=== PATIENT | male | born 1990 | race Hispanic/Latino ===

== ENCOUNTER 2017-01-09 08:02 | Emergency (ER) | payer BC ==
[2017-01-09] MEDS ORDERED: Ketorolac Tromethamine 60 MG/2 ML VIAL ONE (08:13)
--- NOTE | 2017-01-09 08:45 | RAD ---
CHEST PA AND LATERAL: Date: 01/09/17 HISTORY: 26-year-old male with right rib pain following rib fracture several weeks ago. FINDINGS: There is a healing right 7th rib fracture. No pneumothorax or pleural effusion. No evidence for pneum onia. IMPRESSION: Healing right posterolateral 7th rib fracture. No other significant acute process. POS: [facility]
== END 2017-01-09 09:00 | disposition home or self-care (01) ==
LOC: ERS 08:02
DX: S22.31XD Fracture of one rib, right side, subsequent encounter for fracture with routine healing (principal); R05 Cough; J45.909 Unspecified asthma, uncomplicated; F41.9 Anxiety disorder, unspecified; Z71.6 Tobacco abuse counseling; F17.210 Nicotine dependence, cigarettes, uncomplicated; X58.XXXD Exposure to other specified factors, subsequent encounter
CPT/HCPCS: 71020; 96372; 99406; J1885

== ENCOUNTER 2017-03-09 06:44 | Emergency (ER) | payer BC ==
[2017-03-09 07:14] LABS: #Basophils 0.1 thou/uL (0.0-0.2); #Eosinphils 0.1 thou/uL (0.0-0.7); #Lymphocytes 1.5 thou/uL (1.20-3.40); #Monocytes 0.6 thou/uL (0.11-0.59); #Neutrophils 3.4 thou/uL (1.40-6.50); %Basophils 1.1 % (0.0-1.0); %Eosinophils 1.2 % (0.0-10.0); %Lymphocytes 26.7 % (21.0-51.0); %Monocytes 9.9 % (0.0-10.0); %Neutrophils 61.2 % (42.0-75.0); Hemoglobin 17.1 g/dL (14.0-18.0); Mean Corpuscular Hemoglobin 34.1 pg (27.0-31.0); Mean Platelet Volume 6.4 fL (7.4-10.4); Platelet Count 271 thou/uL (130-400); Red Blood Cell (RBC) Count 5.02 mill/uL (4.70-6.10); White Blood Cell (WBC) Count 5.6 thou/uL (4.8-10.8)
[2017-03-09] MEDS ORDERED: Lorazepam 2 MG/ML VIAL ONE (07:32)
--- NOTE | 2017-03-09 07:38 | CT ---
CT BRAIN WITHOUT CONTRAST: HISTORY: Headache and rapid heart rate. COMPARISON: None. FINDINGS: No acute territorial infarct or hemorrhage. No midline shift or mass effect. Ventricular size and e xtraaxial CSF spaces are normal. Calvarium is intact. Paranasal sinuses and mastoids are clear. IMPRESSION: No acute intracranial abnormality. POS: [facility]
[2017-03-09 07:39] LABS: ALT (SGPT) 62 U/L (8-55); AST (SGOT) 54 U/L (5-34); Albumin 4.4 g/dL (3.5-5.0); Alkaline Phosphatase 108 U/L (40-150); Anion Gap 18 mmol/L (10-20); BUN (Urea Nitrogen) 6 mg/dL (8.9-20.6); Bilirubin, Total 2.1 mg/dL (0.2-1.2); CK (CPK) 81 U/L (30-200); Calc. Creatinine Clearance 0 mL/min (70-130); Calcium 9.8 mg/dL (7.8-10.44); Carbon Dioxide 19 mmol/L (22-29); Chloride 102 mmol/L (98-107); Estimated GFR-MDRD Greater than 90; Globulin 3.3 g/dL (2.4-3.5); Glucose 88 mg/dL (70-105); Lipase 33 U/L (8-78); Potassium 4.1 mmol/L (3.5-5.1); Protein, Total 7.7 g/dL (6.0-8.3); Sodium 135 mmol/L (136-145)
--- NOTE | 2017-03-09 07:41 | RAD ---
CHEST 1 VIEW: HISTORY: Palpitations. COMPARISON: Chest 2 views 01/09/17. FINDINGS: Over the left anterior left mid lung is a faint opacity. No pneumothorax. Old right-sided rib fract ures are healing with pleural thickening. No pneumothorax. Cardiac silhouette and mediastinal conto urs are similar. IMPRESSION: 1. Faint midline airspace opacity versus nodule versus confluence of shadows. Nonemergent followup CT recommended. 2. Cold lung nodule. POS: [facility]
[2017-03-09 07:43] LABS: CKMB 0.6 ng/mL (0-6.6); Troponin I 0.012 ng/mL (< 0.028)
--- NOTE | 2017-03-18 21:36 | EKG ---
Test Reason : Blood Pressure : / mmHG Vent. Rate : 115 BPM Atrial Rate : 115 BPM P-R Int : 134 ms QRS Dur : 082 ms QT Int : 324 ms P-R-T Axes : 076 047 060 degrees QTc Int : 448 ms Sinus tachycardia Otherwise normal ECG Confirmed by NAOMI BROCK, AYANNA ([id number]), dictionary editor MONAE SAAVEDRA ([id number]) on 03/18/2017 9:35:58 PM Referred By: Confirmed By:AYANNA SALGADO MD
== END 2017-03-09 09:18 | disposition home or self-care (01) ==
LOC: ERS 06:44
DX: R00.2 Palpitations (principal); J45.909 Unspecified asthma, uncomplicated; F41.9 Anxiety disorder, unspecified; F17.210 Nicotine dependence, cigarettes, uncomplicated
CPT/HCPCS: 36415; 70450; 71045; 80053; 82550; 82553; 83690; 84443; 84484; 85025; 85379; 93005; 94760; 96361; 96374; J2060

== ENCOUNTER 2017-04-01 18:05 | Inpatient (IN) | payer BC ==
[2017-04-01 18:43] LABS: Bilirubin Negative (Negative); Blood, Urine Negative (Negative); Clarity CLEAR (Clear); Glucose, Urine (Dipstick) Negative (Negative); Leukocyte Negative (Negative); Nitrite Negative (Negative); Protein, Urine (Dipstick) Negative (Neg-Trace); Specific Gravity, Urine 1.004 (1.002-1.036)
[2017-04-01 18:53] LABS: #Lymphocytes 1.8 thou/uL (1.20-3.40); #Monocytes 0.7 thou/uL (0.11-0.59); #Neutrophils 5.8 thou/uL (1.40-6.50); %Basophils 0.6 % (0.0-1.0); %Eosinophils 0.6 % (0.0-10.0); %Lymphocytes 21.8 % (21.0-51.0); Hemoglobin 17.4 g/dL (14.0-18.0); Mean Corpuscular HGB CONC 35.2 g/dL (32.0-36.0); Mean Corpuscular Hemoglobin 35.2 pg (27.0-31.0); Mean Platelet Volume 6.5 fL (7.4-10.4); Platelet Count 219 thou/uL (130-400); RBC Distribution Width 11.5 % (11.5-14.5); Red Blood Cell (RBC) Count 4.95 mill/uL (4.70-6.10); White Blood Cell (WBC) Count 8.4 thou/uL (4.8-10.8)
[2017-04-01 19:29] LABS: ALT (SGPT) 78 U/L (8-55); AST (SGOT) 55 U/L (5-34); Albumin 4.9 g/dL (3.5-5.0); Alkaline Phosphatase 114 U/L (40-150); Anion Gap 24 mmol/L (10-20); BUN (Urea Nitrogen) 4 mg/dL (8.9-20.6); Bilirubin, Total 2.3 mg/dL (0.2-1.2); Calc. Creatinine Clearance 0 mL/min (70-130); Carbon Dioxide 20 mmol/L (22-29); Chloride 88 mmol/L (98-107); Estimated GFR-MDRD Greater than 90; Globulin 3.5 g/dL (2.4-3.5); Glucose 90 mg/dL (70-105); Potassium 3.9 mmol/L (3.5-5.1); Protein, Total 8.4 g/dL (6.0-8.3); Sodium 128 mmol/L (136-145)
[2017-04-01] MEDS ORDERED: Ondansetron PF 4 MG/2 ML Vial ONE (20:35)
[2017-04-01] MEDS ORDERED: Lorazepam 2 MG/ML VIAL ONE (20:35)
[2017-04-01] MEDS ORDERED: Pantoprazole 40 MG VIAL ONE (20:35)
[2017-04-01 20:52] LABS: Medtox Reader # READER 4
[2017-04-01 20:53] LABS: Acetaminophen Less than 6.0 mcg/mL (10.0-30.0); Alcohol 115 mg/dL (Less than 10); Salicylate Less than 8.0 mg/dL (15.0-30.0)
[2017-04-01 20:53] LABS: Amphetamine Not Detected (NotDetected); Barbiturates Screen Not Detected (NotDetected); Benzodiazepine Screen Not Detected (NotDetected); Cocaine Metabolite Screen Not Detected (NotDetected); Medtox Control Line Valid? VALID (VALID); Methadone Not Detected (NotDetected); Methamphetamine Not Detected (NotDetected); Opiate Screen Not Detected (NotDetected); Oxycodone Screen Not Detected (NotDetected); Phencyclidine (PCP) Not Detected (NotDetected); THC/Cannabinoid Screen Not Detected (NotDetected); Tricyclic Screen Not Detected (NotDetected)
[2017-04-01 20:58] LABS: Magnesium 2.4 mg/dL (1.6-2.6)
--- NOTE | 2017-04-01 21:26 | RAD ---
PORTABLE CHEST: 04/01/17 HISTORY: Chest pain. COMPARISON: 03/09/17. Heart size and mediastinum are within normal limits. Old right rib fractures are again demonstrated. The lungs are clear of any infiltrative process. IMPRESSION: No active intrathoracic disease. POS: [facility]
--- NOTE | 2017-04-02 00:45 | HP ---
PRIMARY CARE PHYSICIAN: Cecilio Espinal M.D. REASON FOR ADMISSION: Nausea, vomiting, hyponatremia, alcohol withdrawal syndrome. HISTORY OF PRESENT ILLNESS: A 27-year-old male who has alcoholism history and his last drink was yesterday. Since then, he started having nausea , vomiting. He was not able to keep anything down. He was having epigastric and substernal burning discomfort, but he denies any hematemesis. He denies any hematochezia or melena. The patient was feeling anxious and jittery, and he wanted to get help and that is why he decided to come to the emergency room for evaluation. In the emergency room, patient had routine blood tests which showed hyponatremia , hypochloremia. His alcohol level is 115. He was having withdrawal syndrome and that is why we are admitting in hospital. ALLERGIES: ASPIRIN. CURRENT HOME MEDICATIONS: Albuterol sulfate 2 puffs q.4 hourly p.r.n. for asthma. PAST MEDICAL HISTORY: Alcoholism, asthma. PAST SURGICAL HISTORY: Left ear surgery. PAST PSYCHIATRIC HISTORY: Anxiety and depression. SOCIAL HISTORY: Patient drinks alcohol almost every day, 10 beers every day. He is a former drug abuser and he abuse marijuana. His last alcohol use was yesterday. He smokes about a pack per day. FAMILY HISTORY: No strong family history of premature coronary artery disease, stroke, or cancer. REVIEW OF SYSTEMS: The following complete review of systems was negative, unless otherwise mentioned in the HPI or below: Constitutional: Weight loss or gain, ability to conduct usual activities. Skin: Rash, itching. Eyes: Double vision, pain. ENT/Mouth: Nose bleeding, neck stiffness, pain, tenderness. Cardiovascular: Palpitations, dyspnea on exertion, orthopnea. Respiratory: Shortness of breath, wheezing, cough, hemoptysis, fever or night sweats. Gastrointestinal: Poor appetite, abdominal pain, heartburn, nausea, vomiting, constipation, or diarrhea. Genitourinary: Urgency, frequency, dysuria, nocturia. Musculoskeletal: Pain, swelling. Neurologic/Psychiatric: Anxiety, depression. Allergy/Immunologic: Skin rash, bleeding tendency. Please see my HPI for pertinent positives and negatives. All other review of systems reviewed and negative except as mentioned in the HPI. EMERGENCY ROOM COURSE: Patient is given banana bag, Zofran 8 mg, Ativan 2 mg, Protonix 40 mg, IV fluid. PHYSICAL EXAMINATION: VITAL SIGNS: On arrival, blood pressure 147/89, pulse 104, respiratory rate 20 , temperature 99.2, saturation 98% on room air. Weight 74.8 kilograms. GENERAL: Patient is currently hypertensive, mild anxious. HEENT: Head: Normocephalic, atraumatic. Eyes: Pupils round, reactive to light. Extraocular muscles intact. ENT: Oropharynx within normal limits, somewhat appearing mucous membranes. No oral lesions. No pharyngeal erythema, no exudate. NECK: Supple, no JVD, no thyromegaly, no carotid bruits. LUNGS: Clear to auscultation without any rhonchi or rales. CARDIAC: S1, S2 regular, tachycardia, no murmur, no gallop, no rub. ABDOMEN: Patient does have epigastric tenderness, mild, no peritoneal signs, no organomegaly, no Boyle sign, no suprapubic tenderness, no distention. Bowel sounds present. BACK: Unremarkable, no CVA tenderness. EXTREMITIES: Upper extremity passive movement of all joints are normal. Lower extremities: No edema. Good peripheral pulsation. SKIN: No skin rash. HEMATOLOGICAL SYSTEM: No lymphadenopathy. PSYCHIATRIC: Anxious affect. NEUROLOGIC: Nonfocal examination. Tremor present. SIGNIFICANT LABS: 1. CBC: WBC 8.4, hemoglobin 17.4, MCV 100, platelet 219. 2. BMP: Sodium 128, potassium 3.9, chloride 88, carbon dioxide 20, anion gap 24, BUN 4, creatinine 0.69, calcium 10.0. Magnesium 2.4. 3. LFT: AST is 55, ALT is 78, alkaline phosphatase 114, albumin 4.9. 4. Lipase 34. Urine drug screen unremarkable. Serum drug screen, alcohol level 115. Urinalysis, ketones trace. Chest x-ray based on my review, no acute cardiopulmonary process. ASSESSMENT AND PLAN/IMPRESSION: 1. Intractable nausea and vomiting. 2. Dehydration. 3. Hyponatremia and hypochloremia likely due to dehydration and volume depletion from nausea and vomiting. 4. Anion gap metabolic acidosis. 5. Abnormal liver function tests due to alcohol abuse. 6. Alcoholism. 7. Macrocytosis. 8. Tobacco abuse disorder. 9. Asthma. 10. Alcohol Withdrawal syndrome PLAN: 1. Admission to medical floor, [facility] protocol treatment, Pepcid 20 mg IV b.i.d., symptomatic treatment for nausea and vomiting. If the patient's symptoms does not improve, then we will consider GI evaluation. Patient will be given IV fluid with NS and banana bag. 2. Deep venous thrombosis prophylaxis. Lovenox 30 mg subcutaneously daily. 3. Gastrointestinal prophylaxis, Pepcid 20 mg IV b.i.d. 4. Code status: The patient is FULL CODE. Patient does not have any surrogate decision maker. Disposition plan based on clinical course. We are expecting patient's stay in hospital more than 2 midnights. Plan of care discussed with the patient in detail. MTDD
[2017-04-02] MEDS ORDERED: Lorazepam 2 MG/ML VIAL ONE ×2 (02:57→09:29)
[2017-04-02] MEDS ORDERED: Senokot 8.6 MG TAB PO PRN (06:55)
[2017-04-02] MEDS ORDERED: Zolpidem Tartrate 5 MG TAB PO PRN (06:55)
[2017-04-02] MEDS ORDERED: cloNIDine 0.1 MG TAB PO PRN (06:55)
[2017-04-02] MEDS ORDERED: hydrALAZINE 20 MG/ML VIAL SLOW IVP PRN (06:55)
[2017-04-02] MEDS ORDERED: Ondansetron ODT 4 MG TAB PO PRN (06:55)
[2017-04-02] MEDS ORDERED: Ondansetron PF 4 MG/2 ML Vial IVP PRN (06:55)
[2017-04-02] MEDS ORDERED: Milk Of Magnesia 30 ML UDCUP PO PRN (06:55)
[2017-04-02] MEDS ORDERED: Loperamide HCl 2 MG CAP PO PRN (06:55)
[2017-04-02] MEDS ORDERED: Mag-Al 1200 mg/1200 mg/30 ML UDCUP PO PRN (06:55)
[2017-04-02] MEDS ORDERED: Acetaminophen 325 MG TAB PO PRN (06:55)
[2017-04-02] MEDS ORDERED: HYDROcodone/Acetaminophen 5/325 mg Tablet PO PRN (06:55)
[2017-04-02] MEDS ORDERED: Multivitamins, Adult 10 ML, Thiamine HCl 100 MG, Folic Acid 1 MG in Dextrose 5 %-0.45 %... IV SCH (09:00)
[2017-04-02] MEDS ORDERED: Famotidine/PF 20 mg/2ml Vial ONE ×2 (09:06→09:09)
[2017-04-02] MEDS ORDERED: Enoxaparin Sodium 40 MG/0.4 ML SYRINGE ONE (09:06)
[2017-04-02] MEDS: Enoxaparin Sodium 40 MG/0.4 ML SYRINGE SC SCH (12:16)
[2017-04-02] MEDS: Famotidine/PF 20 mg/2ml Vial SLOW IVP SCH ×2 (12:16→21:29)
[2017-04-02 12:28] VITALS: BMI 27.1
[2017-04-02] MEDS: Lorazepam 2 MG/ML VIAL SLOW IVP PRN ×3 (14:48→22:39)
[2017-04-03] MEDS: Lorazepam 1 MG TAB PO PRN ×4 (03:57→22:08)
[2017-04-03 04:35] LABS: #Eosinphils 0.1 thou/uL (0.0-0.7); #Lymphocytes 1.7 thou/uL (1.20-3.40); #Monocytes 0.5 thou/uL (0.11-0.59); #Neutrophils 3.9 thou/uL (1.40-6.50); %Basophils 0.7 % (0.0-1.0); %Eosinophils 1.5 % (0.0-10.0); %Monocytes 7.9 % (0.0-10.0); %Neutrophils 62.8 % (42.0-75.0); Hemoglobin 16.5 g/dL (14.0-18.0); Mean Corpuscular HGB CONC 34.9 g/dL (32.0-36.0); Mean Corpuscular Hemoglobin 35.5 pg (27.0-31.0); Mean Platelet Volume 6.8 fL (7.4-10.4); Platelet Count 173 thou/uL (130-400); RBC Distribution Width 11.5 % (11.5-14.5); Red Blood Cell (RBC) Count 4.64 mill/uL (4.70-6.10); White Blood Cell (WBC) Count 6.3 thou/uL (4.8-10.8)
[2017-04-03 05:09] LABS: ALT (SGPT) 98 U/L (8-55); AST (SGOT) 104 U/L (5-34); Albumin 4.3 g/dL (3.5-5.0); Alkaline Phosphatase 93 U/L (40-150); Anion Gap 15 mmol/L (10-20); BUN (Urea Nitrogen) 8 mg/dL (8.9-20.6); Bilirubin, Total 2.1 mg/dL (0.2-1.2); Calc. Creatinine Clearance 167 mL/min (70-130); Carbon Dioxide 22 mmol/L (22-29); Chloride 103 mmol/L (98-107); Estimated GFR-MDRD Greater than 90; Globulin 3.1 g/dL (2.4-3.5); Glucose 94 mg/dL (70-105); Potassium 3.6 mmol/L (3.5-5.1); Protein, Total 7.4 g/dL (6.0-8.3); Sodium 136 mmol/L (136-145)
[2017-04-03 05:26] LABS: HBCM Index 0.12 S/CO (0-0.79); HBSAg Index 0.12 S/CO (0-0.99); Hep A IgM AB Non-Reactive (NonReactive); Hep A IgM S/CO 0.19 S/CO (0-0.79); Hep B Surf Ag Non-Reactive S/CO (NonReactive); Hep C IgG Ab Non-Reactive (NonReactive); Hepatitis B Core IgM Abs Non-Reactive (NonReactive)
[2017-04-03] MEDS: Multivitamins, Adult 10 ML, Folic Acid 1 MG, Thiamine HCl 100 MG in Dextrose 5 %-0.45 %... IV SCH (06:23)
[2017-04-03] MEDS: Enoxaparin Sodium 40 MG/0.4 ML SYRINGE SC SCH (08:50)
[2017-04-03] MEDS: Famotidine 20 MG TAB PO SCH ×2 (08:51→22:08)
[2017-04-03] MEDS ORDERED: PROVENTIL INHALER 6.7 G (200 INHALATIONS) INH PRN (11:13)
--- NOTE | 2017-04-03 13:00 | PDOC.PN ---
- Subjective Encounter Start Date: 04/03/17 Encounter Start Time: 10:10 Subjective: slept better last night -: eating well, amb in room - Objective Resuscitation Status: Resuscitation Status FULL:Full Resuscitation MAR Reviewed: Yes Vital Signs & Weight: Vital Signs (12 hours) Temp Pulse Resp BP Pulse Ox 04/03/17 12:00 98.4 F 107 H 14 144/92 H 97 04/03/17 08:00 98.8 F 74 16 145/83 H 96 04/03/17 04:00 98.1 F 88 22 H 145/81 H 95 Weight Weight 163 lb 2.273 oz I&O: 04/02/17 04/03/17 04/04/17 06:59 06:59 06:59 Intake Total 1999 625 Balance 1999 625 Result Diagrams: 04/03/17 03:53 04/03/17 03:53 Phys Exam - Physical Examination HEENT: PERRLA, moist MMs Neck: no JVD, supple Respiratory: no wheezing, no rales Cardiovascular: RRR, no significant murmur Gastrointestinal: soft, non-tender, no distention, positive bowel sounds Musculoskeletal: no edema, pulses present Neurological: non-focal, moves all 4 limbs Psychiatric: A&O x 3 Dx/Plan (1) Nausea & vomiting Code(s): R11.2 - NAUSEA WITH VOMITING, UNSPECIFIED Status: Resolved Qualifiers: Vomiting type: unspecified (2) Alcohol abuse Code(s): F10.10 - ALCOHOL ABUSE, UNCOMPLICATED Status: Chronic (3) Alcohol withdrawal Code(s): F10.239 - ALCOHOL DEPENDENCE WITH WITHDRAWAL, UNSPECIFIED Status: Acute Qualifiers: Complication of substance-induced condition: uncomplicated Qualified Code(s ): F10.230 - Alcohol dependence with withdrawal, uncomplicated (4) Asthma Code(s): J45.909 - UNSPECIFIED ASTHMA, UNCOMPLICATED Status: Chronic Qualifiers: Asthma severity: mild Asthma persistence: intermittent Asthma complication type: uncomplicated Qualified Code(s): J45.20 - Mild intermittent asthma, uncomplicated (5) Hyponatremia Code(s): E87.1 - HYPO-OSMOLALITY AND HYPONATREMIA Status: Acute Comment: resolving, sec to alc abuse and dehydration (6) Tobacco abuse Code(s): Z72.0 - TOBACCO USE Status: Chronic - Plan is on [facility] protocol -: tolerating oral diet now -: to amb in hallway as tolerated -: dc plan in am -: librium, banana bag, alb inh prn * . Review of Systems - Medications/Allergies Allergies/Adverse Reactions: Allergies Allergy/AdvReac Type Severity Reaction Status Date / Time aspirin Allergy Verified 04/01/17 20:30 Medications: Current Medications Acetaminophen (Tylenol) 650 mg PO Q4H PRN PRN Reason: Headache/Fever or Pain Hydrocodone Bitart/Acetaminophen ([place] 5/325) 1 tab PO Q4H PRN PRN Reason: Moderate Pain (4-6) Al Hydroxide/Mg Hydroxide (Maalox) 30 ml PO Q6H PRN PRN Reason: Heartburn or Indigestion Albuterol Sulfate (Proventil Hfa) 2 puff INH Q6H PRN PRN Reason: SOB &/or Wheezing Clonidine (Catapres) 0.1 mg PO Q4H PRN PRN Reason: Systolic BP > 180 Enoxaparin Sodium (Lovenox) 40 mg SC 0900 [facility] Last Admin: 04/03/17 08:50 Dose: 40 mg Famotidine (Pepcid) 20 mg PO BID [facility] Last Admin: 04/03/17 08:51 Dose: 20 mg Hydralazine HCl (Apresoline) 10 mg SLOW IVP Q4H PRN PRN Reason: Systolic BP > 180 Multivitamins 10 ml/ Folic Acid 1 mg/ Thiamine HCl 100 mg / Dextrose/Sodium Chloride 1,011.2 mls @ 125 mls/hr IV 0600 [facility] Last Admin: 04/03/17 06:23 Dose: 1,011.2 mls Loperamide HCl (Imodium) 2 mg PO PRN PRN PRN Reason: Diarrhea/Loose Stools Lorazepam (Ativan) 1 mg SLOW IVP Q4H PRN PRN Reason: Anxiety/Agitation Last Admin: 04/02/17 22:39 Dose: 1 mg Lorazepam (Ativan) 1 mg PO Q4H PRN PRN Reason: Anxiety/Agitation Last Admin: 04/03/17 11:21 Dose: 1 mg Magnesium Hydroxide (Milk Of Magnesium) 30 ml PO DAILYPRN PRN PRN Reason: Constipation Ondansetron HCl (Zofran Odt) 4 mg PO Q6H PRN PRN Reason: Nausea/Vomiting Ondansetron HCl (Zofran) 4 mg IVP Q6H PRN PRN Reason: Nausea/Vomiting Senna (Senokot) 2 tab PO HSPRN PRN PRN Reason: Constipation Sodium Chloride (Flush - Normal Saline) 10 ml IVF Q12HR [facility] Last Admin: 04/03/17 11:23 Dose: 10 ml Sodium Chloride (Flush - Normal Saline) 10 ml IVF PRN PRN PRN Reason: Saline Flush Zolpidem Tartrate (Ambien) 5 mg PO HSPRN PRN PRN Reason: Insomnia Last Admin: 04/02/17 22:40 Dose: 5 mg
[2017-04-04] MEDS: Lorazepam 1 MG TAB PO PRN ×2 (05:37→09:30)
[2017-04-04] MEDS: Multivitamins, Adult 10 ML, Folic Acid 1 MG, Thiamine HCl 100 MG in Dextrose 5 %-0.45 %... IV SCH (06:15)
[2017-04-04 08:32] VITALS: BP 132/80; TEMP 98.3
[2017-04-04] MEDS: Famotidine 20 MG TAB PO SCH (09:09)
[2017-04-04] MEDS: Enoxaparin Sodium 40 MG/0.4 ML SYRINGE SC SCH (09:10)
--- NOTE | 2017-04-04 11:21 | PDOC.PN ---
- Subjective Encounter Start Date: 04/04/17 Encounter Start Time: 08:45 Subjective: is amb and eating well - Objective Resuscitation Status: Resuscitation Status FULL:Full Resuscitation MAR Reviewed: Yes Vital Signs & Weight: Vital Signs (12 hours) Temp Pulse Resp BP Pulse Ox 04/04/17 08:45 98.3 F 80 16 96 04/04/17 07:35 98.3 F 80 16 132/80 96 04/04/17 05:10 97.8 F 68 18 130/77 96 04/04/17 00:52 98.3 F 63 18 120/67 94 L Weight Weight 163 lb 2.273 oz I&O: 04/03/17 04/04/17 04/05/17 06:59 06:59 06:59 Intake Total 1999 1125 Balance 1999 1125 Result Diagrams: 04/03/17 03:53 04/03/17 03:53 Phys Exam - Physical Examination HEENT: PERRLA, moist MMs Neck: no JVD, supple Respiratory: no wheezing, no rales Cardiovascular: RRR, no significant murmur Gastrointestinal: soft, non-tender, positive bowel sounds Musculoskeletal: no edema, pulses present Neurological: non-focal, moves all 4 limbs Psychiatric: A&O x 3 Dx/Plan (1) Nausea & vomiting Code(s): R11.2 - NAUSEA WITH VOMITING, UNSPECIFIED Status: Resolved Qualifiers: Vomiting type: unspecified (2) Alcohol abuse Code(s): F10.10 - ALCOHOL ABUSE, UNCOMPLICATED Status: Chronic (3) Alcohol withdrawal Code(s): F10.239 - ALCOHOL DEPENDENCE WITH WITHDRAWAL, UNSPECIFIED Status: Acute Qualifiers: Complication of substance-induced condition: uncomplicated Qualified Code(s ): F10.230 - Alcohol dependence with withdrawal, uncomplicated (4) Asthma Code(s): J45.909 - UNSPECIFIED ASTHMA, UNCOMPLICATED Status: Chronic Qualifiers: Asthma severity: mild Asthma persistence: intermittent Asthma complication type: uncomplicated Qualified Code(s): J45.20 - Mild intermittent asthma, uncomplicated (5) Hyponatremia Code(s): E87.1 - HYPO-OSMOLALITY AND HYPONATREMIA Status: Resolved Comment: resolving, sec to alc abuse and dehydration (6) Tobacco abuse Code(s): Z72.0 - TOBACCO USE Status: Chronic - Plan hemostable -: wants to go home and take librium -: promises not to drink alc and will be compliant with instructions with libr -: -ium including no driving or alc usage -: dc pt home, pt is given prescription for librium taper (36cap) * .
--- NOTE | 2017-04-04 15:03 | DIS ---
DATE OF ADMISSION: 04/02/2017 DATE OF DISCHARGE: 04/04/2017 DISCHARGE DISPOSITION: To home. PRIMARY DISCHARGE DIAGNOSES: 1. Intractable nausea and vomiting, resolved. 2. Alcohol withdrawal with heavy alcohol abuse, stable. 3. Hyponatremia due to alcohol abuse. 4. History of asthma and tobacco abuse. PROCEDURES DONE DURING HOSPITALIZATION: The patient has had chest x-ray done which showed no acute cardiopulmonary abnormalities. H and H 16 and 47, platelet count 173. MCV is 102, had an initial sodium of 128 with discharge numbers of 136, lipase was 34, total bilirubin 2.1, AST 104. Plasma alcohol levels were 115 mg per deciliter. Acute hepatitis panel was negative. DISCHARGE MEDICATIONS: Librium tapering dose starting at 10 mg 3 times daily. Albuterol inhaler q.6 hourly p.r.n. ALLERGIES: ASPIRIN. DISCHARGE PLAN: Patient to follow up with primary care physician in 1 week. BRIEF COURSE DURING HOSPITALIZATION: The patient initially came to ER with complaints of severe nausea, vomiting, and was unable to keep anything down. He admitted to drinking alcohol almost 6-10 beers on a daily basis. In view of this history and multiple electrolyte abnormalities with the patient actively withdrawing with shaking, the patient was admitted to medical floor. He was placed on ASE protocol and all his electrolytes were corrected as well. He was on Librium, which is being tapered. His electrolytes are stable this morning. The patient is ambulating and eating well. He was counseled regarding alcohol use and tobacco abuse as well. Patient has promised not to drink alcohol and is willing to take Librium. He is advised not to drive or operate heavy machinery while he is on Librium. He clearly understands the above. This has been communicated to the patient again via nurse as well. Please see a face to face documentation on [facility] for the day of discharge. [facility]
== END 2017-04-04 10:35 | disposition home or self-care (01) | DRG 897 ==
LOC: ERS 18:05 → ERHOLD 04-02 03:23 → SJJU 04-02 11:59
PROVIDERS: ADMIT Internal Medicine; ATTEND Internal Medicine
DX: F10.239 Alcohol dependence with withdrawal, unspecified (principal); E87.8 Other disorders of electrolyte and fluid balance, not elsewhere classified; E87.1 Hypo-osmolality and hyponatremia; E86.0 Dehydration; F41.8 Other specified anxiety disorders; Z72.0 Tobacco use; J45.909 Unspecified asthma, uncomplicated
CPT/HCPCS: 36415; 71045; 80053; 80074; 80306; 80307; 81003; 83690; 83735; 85025; 96361; 96365; 96366; 96372; 96375; 96376; 99406; C9113; J1650; J2060; J2405; J3411; J7042; S0028

== ENCOUNTER 2017-04-05 12:36 | Emergency (ER) | payer BC ==
[2017-04-05 13:41] LABS: Bilirubin Negative (Negative); Blood, Urine Negative (Negative); Clarity CLEAR (Clear); Glucose, Urine (Dipstick) Negative (Negative); Leukocyte Negative (Negative); Nitrite Negative (Negative); Protein, Urine (Dipstick) Negative (Neg-Trace); Specific Gravity, Urine 1.004 (1.002-1.036); Urobilinogen 0.2 mg/dL (0.2-1.0)
[2017-04-05 13:47] LABS: #Basophils 0.1 thou/uL (0.0-0.2); #Monocytes 0.7 thou/uL (0.11-0.59); #Neutrophils 4.9 thou/uL (1.40-6.50); %Basophils 1.4 % (0.0-1.0); %Eosinophils 0.4 % (0.0-10.0); %Lymphocytes 25.5 % (21.0-51.0); %Monocytes 8.9 % (0.0-10.0); %Neutrophils 63.8 % (42.0-75.0); Hemoglobin 16.4 g/dL (14.0-18.0); Mean Corpuscular HGB CONC 34.5 g/dL (32.0-36.0); Mean Corpuscular Hemoglobin 35.3 pg (27.0-31.0); Mean Platelet Volume 6.9 fL (7.4-10.4); Platelet Count 196 thou/uL (130-400); RBC Distribution Width 11.4 % (11.5-14.5); Red Blood Cell (RBC) Count 4.65 mill/uL (4.70-6.10); White Blood Cell (WBC) Count 7.7 thou/uL (4.8-10.8)
[2017-04-05 13:51] LABS: Amphetamine Not Detected (NotDetected); Barbiturates Screen Not Detected (NotDetected); Benzodiazepine Screen Not Detected (NotDetected); Cocaine Metabolite Screen Not Detected (NotDetected); Medtox Control Line Valid? VALID (VALID); Medtox Reader # READER 4; Methadone Not Detected (NotDetected); Methamphetamine Not Detected (NotDetected); Opiate Screen Not Detected (NotDetected); Oxycodone Screen Not Detected (NotDetected); Phencyclidine (PCP) Not Detected (NotDetected); THC/Cannabinoid Screen Not Detected (NotDetected); Tricyclic Screen Not Detected (NotDetected)
[2017-04-05 14:22] LABS: Acetaminophen Less than 6.0 mcg/mL (10.0-30.0); Alcohol 148 mg/dL (Less than 10); Salicylate Less than 8.0 mg/dL (15.0-30.0)
[2017-04-05 14:23] LABS: ALT (SGPT) 221 U/L (8-55); AST (SGOT) 136 U/L (5-34); Albumin 4.8 g/dL (3.5-5.0); Alkaline Phosphatase 94 U/L (40-150); Anion Gap 15 mmol/L (10-20); BUN (Urea Nitrogen) 4 mg/dL (8.9-20.6); Bilirubin, Total 0.8 mg/dL (0.2-1.2); CK (CPK) 80 U/L (30-200); Calc. Creatinine Clearance 0 mL/min (70-130); Calcium 9.7 mg/dL (7.8-10.44); Carbon Dioxide 20 mmol/L (22-29); Chloride 106 mmol/L (98-107); Estimated GFR-MDRD Greater than 90; Globulin 3.1 g/dL (2.4-3.5); Glucose 89 mg/dL (70-105); Magnesium 2.4 mg/dL (1.6-2.6); Potassium 3.8 mmol/L (3.5-5.1); Protein, Total 7.9 g/dL (6.0-8.3); Sodium 137 mmol/L (136-145)
[2017-04-05] MEDS ORDERED: Lorazepam 2 MG/ML VIAL ONE (17:05)
== END 2017-04-05 17:36 | disposition home or self-care (01) ==
LOC: ERS 12:36
DX: F10.239 Alcohol dependence with withdrawal, unspecified (principal); J45.909 Unspecified asthma, uncomplicated; F41.9 Anxiety disorder, unspecified; F17.210 Nicotine dependence, cigarettes, uncomplicated
CPT/HCPCS: 80053; 80306; 80307; 81003; 82550; 83605; 83735; 85025; 94760; 96374; J2060

== ENCOUNTER 2019-05-21 09:51 | Emergency (ER) | payer SELFPAY, OTHER | END 2019-05-21 10:39 | disposition home or self-care (01) | LOC: ERS 09:51 | DX: J45.901 Unspecified asthma with (acute) exacerbation (principal); F17.210 Nicotine dependence, cigarettes, uncomplicated; F41.9 Anxiety disorder, unspecified | CPT/HCPCS: 99284 ==

== ENCOUNTER 2019-07-07 13:35 | Emergency (ER) | payer BC, OTHER, SELFPAY ==
[2019-07-07] MEDS ORDERED: Lorazepam 2 MG/ML VIAL ONE (14:05)
[2019-07-07 14:12] LABS: #Basophils 0.1 thou/uL (0.0-0.2); #Eosinphils 0.1 thou/uL (0.0-0.7); #Lymphocytes 2.5 thou/uL (1.20-3.40); #Monocytes 0.3 thou/uL (0.11-0.59); #Neutrophils 5.5 thou/uL (1.40-6.50); %Basophils 0.7 % (0.0-1.0); %Eosinophils 0.9 % (0.0-10.0); %Lymphocytes 29.7 % (21.0-51.0); %Neutrophils 64.6 % (42.0-75.0); Hemoglobin 18.9 g/dL (14.0-18.0); Mean Corpuscular HGB CONC 33.3 g/dL (32.0-36.0); Mean Corpuscular Hemoglobin 31.8 pg (27.0-31.0); Mean Corpuscular Volume 95.5 fL (78.0-98.0); Mean Platelet Volume 7.4 fL (7.4-10.4); Platelet Count 258 thou/uL (130-400); RBC Distribution Width 11.7 % (11.5-14.5); Red Blood Cell (RBC) Count 5.96 mill/uL (4.70-6.10); White Blood Cell (WBC) Count 8.6 thou/uL (4.8-10.8)
--- NOTE | 2019-07-07 14:17 | RAD ---
EXAM: XR Chest 1 View Portable PROVIDED CLINICAL HISTORY: Dyspnea COMPARISON: 04/01/2017 FINDINGS: Cardiac silhouette and pulmonary vasculature are within normal limits. The lungs are clear. Remote bi lateral rib fractures and deformities are seen. IMPRESSION: 1. No acute cardiopulmonary process. 2. Multiple remote bilateral rib fractures.
[2019-07-07 14:28] LABS: ALT (SGPT) 84 U/L (8-55); AST (SGOT) 58 U/L (5-34); Albumin 4.7 g/dL (3.5-5.0); Alkaline Phosphatase 127 U/L (40-110); Anion Gap 17 mmol/L (10-20); BUN (Urea Nitrogen) 9 mg/dL (8.9-20.6); Bilirubin, Total 1.7 mg/dL (0.2-1.2); Calc. Creatinine Clearance 0 mL/min (70-130); Calcium 9.7 mg/dL (7.8-10.44); Carbon Dioxide 20 mmol/L (22-29); Chloride 101 mmol/L (98-107); Estimated GFR-MDRD Greater than 90; Globulin 3.6 g/dL (2.4-3.5); Glucose 128 mg/dL (70-105); Protein, Total 8.3 g/dL (6.0-8.3); Sodium 134 mmol/L (136-145)
[2019-07-07 14:59] LABS: Amphetamine Not Detected (NotDetected); Barbiturates Screen Not Detected (NotDetected); Benzodiazepine Screen Not Detected (NotDetected); Cocaine Metabolite Screen Not Detected (NotDetected); Medtox Control Line Valid? VALID (VALID); Medtox Reader # READER 4; Methadone Not Detected (NotDetected); Methamphetamine Not Detected (NotDetected); Opiate Screen Not Detected (NotDetected); Oxycodone Screen Not Detected (NotDetected); Phencyclidine (PCP) Not Detected (NotDetected); THC/Cannabinoid Screen Not Detected (NotDetected); Tricyclic Screen Not Detected (NotDetected)
--- NOTE | 2019-07-10 15:34 | EKG ---
Test Reason : Blood Pressure : / mmHG Vent. Rate : 117 BPM Atrial Rate : 117 BPM P-R Int : 138 ms QRS Dur : 078 ms QT Int : 326 ms P-R-T Axes : 087 023 068 degrees QTc Int : 454 ms Sinus tachycardia Otherwise normal ECG Confirmed by STONEY GARCIA ([id number]), editor index MONAE SAAVEDRA ([id number]) on 07/10/2019 3:33:56 PM Referred By: Confirmed By:STONEY GARCIA
== END 2019-07-07 15:42 | disposition home or self-care (01) ==
LOC: ERS 13:35
DX: U07.1 COVID-19 (principal); E86.0 Dehydration; F10.239 Alcohol dependence with withdrawal, unspecified; J45.909 Unspecified asthma, uncomplicated; I10 Essential (primary) hypertension; F17.210 Nicotine dependence, cigarettes, uncomplicated; F41.9 Anxiety disorder, unspecified; Z79.899 Other long term (current) drug therapy
CPT/HCPCS: 71045; 80053; 80306; 85025; 93005; 96374; J2060

== ENCOUNTER 2019-11-26 14:42 | Emergency (ER) | payer BC, OTHER ==
--- NOTE | 2019-11-26 16:22 | RAD ---
XR Chest 1 View Portable HISTORY: Tachycardia, dizziness COMPARISON: 07/07/2019 FINDINGS: The heart size is normal. The lungs are well expanded without focal areas of consolidation, pneumothorax or pleural effusions. Old bilateral rib fractures are again seen. IMPRESSION: No radiographic evidence of acute cardiopulmonary process.
[2019-11-26 16:32] LABS: #Lymphocytes 2.1 thou/uL (1.20-3.40); #Monocytes 0.6 thou/uL (0.11-0.59); #Neutrophils 4.9 thou/uL (1.40-6.50); %Basophils 0.5 % (0.0-1.0); %Eosinophils 0.6 % (0.0-10.0); %Lymphocytes 26.9 % (21.0-51.0); %Monocytes 7.6 % (0.0-10.0); %Neutrophils 64.4 % (42.0-75.0); Hemoglobin 18.3 g/dL (14.0-18.0); Mean Corpuscular HGB CONC 35.4 g/dL (32.0-36.0); Mean Corpuscular Volume 93.3 fL (78.0-98.0); Mean Platelet Volume 7.9 fL (7.4-10.4); Platelet Count 381 thou/uL (130-400); RBC Distribution Width 11.8 % (11.5-14.5); Red Blood Cell (RBC) Count 5.55 mill/uL (4.70-6.10); White Blood Cell (WBC) Count 7.7 thou/uL (4.8-10.8)
[2019-11-26 17:01] LABS: ALT (SGPT) 46 U/L (8-55); AST (SGOT) 55 U/L (5-34); Albumin 4.5 g/dL (3.5-5.0); Alkaline Phosphatase 101 U/L (40-110); Anion Gap 17 mmol/L (10-20); BUN (Urea Nitrogen) 11 mg/dL (8.9-20.6); Bilirubin, Total 0.8 mg/dL (0.2-1.2); CK (CPK) 135 U/L (30-200); Calc. Creatinine Clearance 0 mL/min (70-130); Calcium 9.2 mg/dL (7.8-10.44); Carbon Dioxide 21 mmol/L (22-29); Chloride 102 mmol/L (98-107); Estimated GFR-MDRD 84; Globulin 4.1 g/dL (2.4-3.5); Glucose 115 mg/dL (70-105); Potassium 5.5 mmol/L (3.5-5.1); Protein, Total 8.6 g/dL (6.0-8.3); Sodium 134 mmol/L (136-145)
[2019-11-26 17:51] LABS: Bilirubin Negative (Negative); Blood, Urine Negative (Negative); Clarity Clear (Clear); Glucose, Urine (Dipstick) Normal (Negative); Ketone, Urine Negative (Negative); Leukocyte Negative Leu/uL (Negative); Nitrite Negative (Negative); Protein, Urine (Dipstick) Negative (Neg-Trace); Urobilinogen Normal mg/dL (Less than 2); pH, Urine 7.5 (5.0-9.0)
== END 2019-11-26 18:12 | disposition home or self-care (01) ==
LOC: ERS 14:42
DX: E86.0 Dehydration (principal); J45.909 Unspecified asthma, uncomplicated; I10 Essential (primary) hypertension; F17.210 Nicotine dependence, cigarettes, uncomplicated; F41.9 Anxiety disorder, unspecified; Z79.899 Other long term (current) drug therapy
CPT/HCPCS: 71045; 80053; 81003; 82550; 85025; 93005; 96360; 96361

== ENCOUNTER 2020-03-21 08:29 | Inpatient (IN) | payer BC ==
[2020-03-21] MEDS ORDERED: HYDROcodone/Acetaminophen 10/325 mg Tablet ONE (08:43)
[2020-03-21] MEDS ORDERED: Ondansetron PF 4 MG/2 ML Vial ONE (09:01)
[2020-03-21 09:17] LABS: #Lymphocytes 2.1 thou/uL (1.20-3.40); #Neutrophils 8.8 thou/uL (1.40-6.50); %Basophils 0.3 % (0.0-1.0); %Eosinophils 0.1 % (0.0-10.0); %Lymphocytes 17.4 % (21.0-51.0); %Monocytes 8.1 % (0.0-10.0); %Neutrophils 74.1 % (42.0-75.0); Hemoglobin 17.1 g/dL (14.0-18.0); Mean Corpuscular HGB CONC 35.3 g/dL (32.0-36.0); Mean Corpuscular Hemoglobin 32.3 pg (27.0-31.0); Mean Corpuscular Volume 91.5 fL (78.0-98.0); Mean Platelet Volume 6.8 fL (7.4-10.4); Platelet Count 292 thou/uL (130-400); White Blood Cell (WBC) Count 11.8 thou/uL (4.8-10.8)
[2020-03-21 09:39] LABS: ALT (SGPT) 55 U/L (8-55); AST (SGOT) 81 U/L (5-34); Albumin 4.4 g/dL (3.5-5.0); Alkaline Phosphatase 119 U/L (40-110); Anion Gap 22 mmol/L (10-20); BUN (Urea Nitrogen) 13 mg/dL (8.9-20.6); Bilirubin, Total 2.4 mg/dL (0.2-1.2); Calc. Creatinine Clearance 0 mL/min (70-130); Carbon Dioxide 19 mmol/L (22-29); Chloride 92 mmol/L (98-107); Globulin 3.7 g/dL (2.4-3.5); Glucose 135 mg/dL (70-105); Potassium 3.6 mmol/L (3.5-5.1); Protein, Total 8.1 g/dL (6.0-8.3); Sodium 129 mmol/L (136-145)
[2020-03-21] MEDS ORDERED: Magnesium 2 GM/50 ML BAG (IN WATER) ONE (09:56)
[2020-03-21] MEDS ORDERED: Famotidine 20 MG TAB ONE (09:56)
[2020-03-21] MEDS ORDERED: Dexamethasone 10 MG/ML VIAL ONE (09:56)
[2020-03-21 10:35] LABS: Acetaminophen Less than 6.0 mcg/mL (10.0-30.0); Alcohol 32 mg/dL (Less than 10); Salicylate Less than 8.0 mg/dL (15.0-30.0)
[2020-03-21] MEDS ORDERED: Lorazepam 2 MG/ML VIAL ONE ×5 (11:07→23:44)
[2020-03-21 13:30] LABS: Lactic Acid 5.1 mmol/L (0.5-2.2)
[2020-03-21] MEDS ORDERED: Multivitamins, Adult 10 ML, Folic Acid 1 MG, Thiamine HCl 100 MG in Dextrose 5 %-0.45 %... IV SCH (14:00)
[2020-03-21 14:33] LABS: Bacteria/HPF None Seen HPF (None Seen); Bilirubin Negative (Negative); Blood, Urine Trace (Negative); Clarity Clear (Clear); Glucose, Urine (Dipstick) Normal (Negative); Ketone, Urine 10 mg/dL (Negative); Leukocyte Negative Leu/uL (Negative); Nitrite Negative (Negative); Protein, Urine (Dipstick) 100 mg/dL (Neg-Trace); RBC/HPF 0-3 HPF (0-3); Specific Gravity, Urine 1.034 (1.002-1.036); Squamous Epithelial 0-3 HPF (0-3); Urobilinogen Normal mg/dL (Less than 2); WBC/HPF 0-3 HPF (0-3); pH, Urine 6.5 (5.0-9.0)
[2020-03-21] MEDS ORDERED: Iopamidol-370 76% 500 ML 1 ML ONE (14:35)
[2020-03-21] MEDS ORDERED: Thiamine HCl 200 MG/2 ML VIAL IM SCH (14:45)
[2020-03-21 15:03] LABS: Amphetamine Not Detected (NotDetected); Barbiturates Screen Not Detected (NotDetected); Benzodiazepine Screen Detected (NotDetected); Cocaine Metabolite Screen Not Detected (NotDetected); Medtox Control Line Valid? VALID (VALID); Medtox Reader # READER 4; Methadone Not Detected (NotDetected); Methamphetamine Not Detected (NotDetected); Opiate Screen Detected (NotDetected); Oxycodone Screen Not Detected (NotDetected); Phencyclidine (PCP) Not Detected (NotDetected); THC/Cannabinoid Screen Not Detected (NotDetected); Tricyclic Screen Not Detected (NotDetected)
[2020-03-21 15:22] LABS: SARS-CoV-2 NAA Rapid Test DETECTED (NotDetected)
[2020-03-21] MEDS ORDERED: Piperacillin/Tazobactam 3.375 GM VIAL ONE ×2 (15:39→21:16)
[2020-03-21] MEDS ORDERED: Dexamethasone 10 MG in Sodium Chloride 0.9% 50 ML IVPB SCH (15:45)
[2020-03-21] MEDS: Piperacillin/Tazobactam 3.375 GM in Sodium Chloride 0.9% 100 ML IVPB SCH ×2 (16:31→21:42)
[2020-03-21] MEDS ORDERED: Morphine 2 MG/ML VIAL ONE ×2 (17:03→21:16)
[2020-03-21] MEDS: Morphine 2 MG/ML VIAL SLOW IVP PRN ×2 (17:20→21:42)
[2020-03-21] MEDS: Lorazepam 2 MG/ML VIAL SLOW IVP PRN ×3 (17:20→23:45)
[2020-03-21] MEDS ORDERED: Acetaminophen 325 MG TAB PO PRN (18:02)
[2020-03-21] MEDS ORDERED: Ondansetron PF 4 MG/2 ML Vial IVP PRN (18:02)
[2020-03-21] MEDS ORDERED: Sodium Chloride 0.9% 1,000 ML IV SCH ×2 (18:15)
[2020-03-21] MEDS: Lidocaine 5% Patch TD SCH (19:20)
[2020-03-21] MEDS ORDERED: Famotidine/PF 20 mg/2ml Vial ONE (21:16)
[2020-03-21] MEDS: Famotidine/PF 20 mg/2ml Vial SLOW IVP SCH (21:42)
[2020-03-21 23:31] LABS: Lactic Acid 3.2 mmol/L (0.5-2.2)
[2020-03-22] MEDS ORDERED: Piperacillin/Tazobactam 3.375 GM VIAL ONE (03:09)
[2020-03-22] MEDS: Piperacillin/Tazobactam 3.375 GM in Sodium Chloride 0.9% 100 ML IVPB SCH ×3 (04:06→13:09)
[2020-03-22] MEDS: Transdermal Patch Removal TOP SCH (04:07)
[2020-03-22 04:08] VITALS: BMI 33.1
[2020-03-22] MEDS: Morphine 2 MG/ML VIAL SLOW IVP PRN (04:25)
[2020-03-22] MEDS: Lorazepam 2 MG/ML VIAL SLOW IVP PRN ×6 (05:57→22:26)
[2020-03-22 06:01] LABS: #Lymphocytes 0.9 thou/uL (1.20-3.40); #Monocytes 0.5 thou/uL (0.11-0.59); %Eosinophils 0.1 % (0.0-10.0); %Lymphocytes 9.4 % (21.0-51.0); %Monocytes 5.3 % (0.0-10.0); %Neutrophils 85.2 % (42.0-75.0); Hemoglobin 14.7 g/dL (14.0-18.0); Mean Corpuscular HGB CONC 34.9 g/dL (32.0-36.0); Mean Corpuscular Hemoglobin 32.6 pg (27.0-31.0); Mean Corpuscular Volume 93.4 fL (78.0-98.0); Mean Platelet Volume 7.1 fL (7.4-10.4); Platelet Count 233 thou/uL (130-400); Red Blood Cell (RBC) Count 4.52 mill/uL (4.70-6.10); White Blood Cell (WBC) Count 9.3 thou/uL (4.8-10.8)
[2020-03-22 06:12] LABS: Lactic Acid 2.2 mmol/L (0.5-2.2)
[2020-03-22 06:16] LABS: Anion Gap 15 mmol/L (10-20); BUN (Urea Nitrogen) 11 mg/dL (8.9-20.6); Calc. Creatinine Clearance 158 mL/min (70-130); Calcium 8.9 mg/dL (7.8-10.44); Carbon Dioxide 19 mmol/L (22-29); Chloride 105 mmol/L (98-107); Glucose 144 mg/dL (70-105); Potassium 3.9 mmol/L (3.5-5.1); Sodium 135 mmol/L (136-145)
[2020-03-22] MEDS: Multivitamin W/ Minerals 1 TAB PO SCH (07:54)
[2020-03-22] MEDS: Thiamine 100 MG TAB PO SCH (07:54)
[2020-03-22] MEDS: Folic Acid 1 MG TAB PO SCH (07:54)
[2020-03-22] MEDS: Magnesium Oxide 400 MG TAB PO SCH (07:54)
[2020-03-22] MEDS: Famotidine/PF 20 mg/2ml Vial SLOW IVP SCH ×2 (07:55→20:13)
[2020-03-22] MEDS ORDERED: FLU VACC QS2020-21(6MOS UP)/PF 60 MCG/0.5 ML SYRINGE IM ONE (09:00)
[2020-03-22] MEDS ORDERED: Ergocalciferol 1.25 MG(50,000 UNITS) CAP PO SCH (09:00)
[2020-03-22] MEDS ORDERED: Diazepam 5 MG TAB PO PRN (09:04)
[2020-03-22] MEDS ORDERED: Diazepam 5 MG TAB PO SCH (09:15)
[2020-03-22] MEDS: Cholecalciferol 1,000 UNITS (25 MCG) TAB PO SCH (09:36)
[2020-03-22] MEDS: cloNIDine 0.1 MG TAB PO SCH ×2 (09:36→20:13)
[2020-03-22] MEDS: Pantoprazole 40 MG GRANULES PACKET PO SCH (09:36)
[2020-03-22] MEDS: Escitalopram Oxalate 10 mg Tablet PO SCH (09:36)
[2020-03-22] MEDS: traMADol HCl 50 MG TAB PO PRN ×2 (09:39→22:26)
[2020-03-22] MEDS ORDERED: Ibuprofen 600 MG TAB PO PRN (11:03)
[2020-03-22] MEDS: Nicotine 14 MG PATCH TD SCH (13:08)
[2020-03-22] MEDS: Acetaminophen/Codeine 30-300mg Tablet PO PRN (13:09)
[2020-03-22 15:32] LABS: ALT (SGPT) 42 U/L (8-55); AST (SGOT) 50 U/L (5-34); Albumin 4.1 g/dL (3.5-5.0); Alkaline Phosphatase 104 U/L (40-110); Bilirubin, Direct 0.8 mg/dL (0.1-0.3); Protein, Total 7.2 g/dL (6.0-8.3)
[2020-03-22 15:35] LABS: Troponin I Less than 0.010 ng/mL (< 0.028)
[2020-03-22] MEDS: Lidocaine 5% Patch TD SCH (17:06)
[2020-03-23] MEDS: Lorazepam 2 MG/ML VIAL SLOW IVP PRN (00:04)
[2020-03-23] MEDS: Transdermal Patch Removal TOP SCH (03:32)
[2020-03-23] MEDS ORDERED: Diazepam 5 MG TAB PO PRN (04:00)
[2020-03-23] MEDS: Famotidine/PF 20 mg/2ml Vial SLOW IVP SCH (08:05)
[2020-03-23] MEDS: Multivitamin W/ Minerals 1 TAB PO SCH (08:05)
[2020-03-23] MEDS: Escitalopram Oxalate 10 mg Tablet PO SCH (08:06)
[2020-03-23] MEDS: Thiamine 100 MG TAB PO SCH (08:06)
[2020-03-23] MEDS: Pantoprazole 40 MG GRANULES PACKET PO SCH (08:06)
[2020-03-23] MEDS: Magnesium Oxide 400 MG TAB PO SCH (08:06)
[2020-03-23] MEDS: Folic Acid 1 MG TAB PO SCH (08:06)
[2020-03-23] MEDS: cloNIDine 0.1 MG TAB PO SCH (08:06)
[2020-03-23] MEDS: Cholecalciferol 1,000 UNITS (25 MCG) TAB PO SCH (08:06)
[2020-03-23] MEDS: Acetaminophen/Codeine 30-300mg Tablet PO PRN ×2 (08:27→14:09)
[2020-03-23] MEDS ORDERED: busPIRone HCl 10 MG TAB PO SCH (09:00)
[2020-03-23] MEDS ORDERED: hydrALAZINE 25 MG TAB PO SCH ×2 (10:00→15:00)
[2020-03-23] MEDS: Nicotine 14 MG PATCH TD SCH (14:08)
[2020-03-23 15:49] VITALS: TEMP 97.8
[2020-03-23 16:32] VITALS: BP 161/97
[2020-03-23] MEDS: Lidocaine 5% Patch TD SCH (18:03)
== END 2020-03-23 17:11 | disposition home or self-care (01) | DRG 183 ==
LOC: ERS 08:29 → ERHOLD 13:18 → 2SE 03-22 03:22
PROVIDERS: ADMIT Internal Medicine; ATTEND Internal Medicine
DX: S22.41XA Multiple fractures of ribs, right side, initial encounter for closed fracture (principal); U07.1 COVID-19; E87.1 Hypo-osmolality and hyponatremia; E87.2 Acidosis; F10.239 Alcohol dependence with withdrawal, unspecified; R44.3 Hallucinations, unspecified; F10.280 Alcohol dependence with alcohol-induced anxiety disorder; Z23 Encounter for immunization; W19.XXXA Unspecified fall, initial encounter; F17.210 Nicotine dependence, cigarettes, uncomplicated; E55.9 Vitamin D deficiency, unspecified; I10 Essential (primary) hypertension; E11.9 Type 2 diabetes mellitus without complications; J45.909 Unspecified asthma, uncomplicated; E86.0 Dehydration; K76.0 Fatty (change of) liver, not elsewhere classified; Y90.1 Blood alcohol level of 20-39 mg/100 ml; Z79.51 Long term (current) use of inhaled steroids; Z79.899 Other long term (current) drug therapy; Z88.6 Allergy status to analgesic agent
CPT/HCPCS: 0240U; 36415; 36416; 71045; 71275; 74177; 76705; 80048; 80053; 80076; 80306; 80307; 81003; 81015; 82010; 82306; 83605; 84484; 85025; 87040; 90471; 90662; 93005; 96374; 96375; 96376; G0008; J1100; J2060; J2270; J2405; J2543; J3411; J3475; J3490; J7042; Q9967; S0028

== ENCOUNTER 2020-06-04 13:14 | Inpatient (IN) | payer BC ==
[2020-06-04 14:07] LABS: Hemoglobin 16.6 g/dL (14.0-18.0); Mean Corpuscular HGB CONC 33.4 g/dL (32.0-36.0); Mean Corpuscular Hemoglobin 31.8 pg (27.0-31.0); Mean Corpuscular Volume 95.2 fL (78.0-98.0); Mean Platelet Volume 7.2 fL (7.4-10.4); Platelet Count 219 thou/uL (130-400); Red Blood Cell (RBC) Count 5.23 mill/uL (4.70-6.10); White Blood Cell (WBC) Count 20.1 thou/uL (4.8-10.8)
[2020-06-04] MEDS ORDERED: Lorazepam 2 MG/ML VIAL ONE ×5 (14:12→18:41)
[2020-06-04 14:21] LABS: Band 1 % (5-11); Lymphocytes 3 % (21-51); MDiff Complete? YES; Monocytes 7 % (0-10); Neutrophil 89 % (42-75); Platelet Morphology Comment Appears Adequate; RBC Morphology Normal
[2020-06-04] MEDS ORDERED: Ondansetron PF 4 MG/2 ML Vial ONE (14:44)
[2020-06-04] MEDS ORDERED: Thiamine HCl 200 MG/2 ML VIAL SLOW IVP SCH (15:30)
[2020-06-04] MEDS ORDERED: Folic Acid 1 MG, Multivitamins, Adult 10 ML in Dextrose 5 %-0.45 % NaCl 1,000 ML IV SCH (15:30)
[2020-06-04 15:49] LABS: Acetaminophen Less than 6.0 mcg/mL (10.0-30.0); Alcohol Less than 10 mg/dL (Less than 10); Salicylate Less than 8.0 mg/dL (15.0-30.0)
[2020-06-04 15:57] LABS: ALT (SGPT) 51 U/L (8-55); AST (SGOT) 39 U/L (5-34); Albumin 4.2 g/dL (3.5-5.0); Alkaline Phosphatase 124 U/L (40-110); Anion Gap 23 mmol/L (10-20); BUN (Urea Nitrogen) 12 mg/dL (8.9-20.6); Bilirubin, Total 1.7 mg/dL (0.2-1.2); Calc. Creatinine Clearance 0 mL/min (70-130); Calcium 8.9 mg/dL (7.8-10.44); Carbon Dioxide 19 mmol/L (22-29); Chloride 87 mmol/L (98-107); Globulin 3.4 g/dL (2.4-3.5); Glucose 104 mg/dL (70-105); Potassium 3.3 mmol/L (3.5-5.1); Protein, Total 7.6 g/dL (6.0-8.3); Sodium 126 mmol/L (136-145)
[2020-06-04] MEDS ORDERED: VANCOMYCIN 2 GRAM/400 ML BAG 2 GM in Premix Bag 1 BAG IVPB SCH ×2 (16:00→16:15)
[2020-06-04 16:06] LABS: Actual Bicarbonate (HCO3a) 20.6 mEq/L (22-28); Analyzer IN Cardio ER; Base Excess (BEa) -1.7 mEq/L (-2.0 to +3.0); CO2 Tension 28.9 mmHg (35.0-45.0); Calcium, Ionized (arterial) 1.06 mmol/L (1.12-1.30); Carboxyhemoglobin (COHb) 2.6 gm% (0.0-3.0); Hemoglobin (Hb) 14.9 g/dL (14.0-18.0); O2 Tension (PaO2), arterial 76.5 mmHg (80.0-100.0); Potassium - ABG Lab 3.32 mmol/L (3.70-5.30); pH, Arterial 7.47 (7.35-7.45)
[2020-06-04 16:07] LABS: Puncture Site RRA
[2020-06-04 16:08] LABS: ALV-art Gradient 37.105 mmHg (0-20)
[2020-06-04] MEDS ORDERED: Pantoprazole 40 MG VIAL ONE (16:12)
[2020-06-04 17:00] LABS: Bilirubin Negative (Negative); Blood, Urine 1+ (Negative); Clarity Clear (Clear); Glucose, Urine (Dipstick) Normal (Negative); Ketone, Urine 80 mg/dL (Negative); Leukocyte Negative Leu/uL (Negative); Nitrite Negative (Negative); Protein, Urine (Dipstick) 50 mg/dL (Neg-Trace); Specific Gravity, Urine 1.016 (1.002-1.036); Squamous Epithelial None Seen HPF (0-3); Urobilinogen Normal mg/dL (Less than 2); pH, Urine 5.5 (5.0-9.0)
[2020-06-04 17:03] LABS: Bacteria/HPF Rare-Few HPF (None Seen)
[2020-06-04 18:46] LABS: Lactic Acid 1.2 mmol/L (0.5-2.2)
[2020-06-04 19:33] LABS: Magnesium 1.8 mg/dL (1.6-2.6); Phosphorus 2.6 mg/dL (2.3-4.7)
[2020-06-04 19:44] LABS: SARS-CoV-2 NAA Rapid Test Not Detected (NotDetected)
[2020-06-04 21:54] VITALS: BMI 32.2
[2020-06-04] MEDS ORDERED: Multivitamins, Adult 10 ML, Folic Acid 1 MG in Dextrose 5 %-0.45 % NaCl 1,000 ML IV SCH (22:00)
[2020-06-04] MEDS: Cefepime 1 GM in Sodium Chloride 0.9% 100 ML IVPB SCH (22:00)
[2020-06-04] MEDS: Labetalol HCl 100 MG/20 ML VIAL SLOW IVP PRN (22:07)
[2020-06-04] MEDS: Thiamine HCl 200 MG/2 ML VIAL SLOW IVP SCH (22:24)
[2020-06-04] MEDS: Sodium Chloride 0.9% 1,000 ML IV SCH (23:07)
[2020-06-04] MEDS: Vancomycin 1 GM in Premix Bag 1 BAG IVPB SCH (23:35)
[2020-06-04] MEDS: Lorazepam 2 MG/ML VIAL SLOW IVP PRN (23:40)
[2020-06-04] MEDS: Ondansetron PF 4 MG/2 ML Vial IVP PRN (23:40)
[2020-06-05] MEDS ORDERED: Baclofen 10 MG TAB PO SCH (03:30)
[2020-06-05] MEDS: Sodium Chloride 0.9% 1,000 ML IV SCH (04:10)
[2020-06-05] MEDS: Lorazepam 2 MG/ML VIAL SLOW IVP PRN ×6 (04:19→22:18)
[2020-06-05 04:20] LABS: #Basophils 0.1 thou/uL (0.0-0.2); #Lymphocytes 1.6 thou/uL (1.20-3.40); #Monocytes 0.9 thou/uL (0.11-0.59); #Neutrophils 8.8 thou/uL (1.40-6.50); %Basophils 0.5 % (0.0-1.0); %Eosinophils 0.2 % (0.0-10.0); %Lymphocytes 14.3 % (21.0-51.0); %Monocytes 8.2 % (0.0-10.0); %Neutrophils 76.8 % (42.0-75.0); Hemoglobin 14.5 g/dL (14.0-18.0); Mean Corpuscular HGB CONC 33.8 g/dL (32.0-36.0); Mean Corpuscular Volume 97.5 fL (78.0-98.0); Mean Platelet Volume 7.6 fL (7.4-10.4); Platelet Count 152 thou/uL (130-400); RBC Distribution Width 12.2 % (11.5-14.5); White Blood Cell (WBC) Count 11.5 thou/uL (4.8-10.8)
[2020-06-05 04:34] LABS: ALT (SGPT) 40 U/L (8-55); AST (SGOT) 37 U/L (5-34); Albumin 3.9 g/dL (3.5-5.0); Alkaline Phosphatase 109 U/L (40-110); Anion Gap 18 mmol/L (10-20); BUN (Urea Nitrogen) 9 mg/dL (8.9-20.6); Bilirubin, Total 1.9 mg/dL (0.2-1.2); Calc. Creatinine Clearance 171 mL/min (70-130); Calcium 8.9 mg/dL (7.8-10.44); Carbon Dioxide 20 mmol/L (22-29); Chloride 98 mmol/L (98-107); Globulin 3.2 g/dL (2.4-3.5); Glucose 93 mg/dL (70-105); Magnesium 2.2 mg/dL (1.6-2.6); Potassium 3.4 mmol/L (3.5-5.1); Protein, Total 7.1 g/dL (6.0-8.3); Sodium 133 mmol/L (136-145)
[2020-06-05 04:41] LABS: Phosphorus 2.2 mg/dL (2.3-4.7)
[2020-06-05 08:10] LABS: INR-International Normal Ratio 1.1; Prothrombin Time 14.1 sec (12.0-14.7)
[2020-06-05] MEDS: Cefepime 1 GM in Sodium Chloride 0.9% 100 ML IVPB SCH ×2 (08:57→20:06)
[2020-06-05] MEDS: Vancomycin 1 GM in Premix Bag 1 BAG IVPB SCH ×2 (08:57→15:49)
[2020-06-05] MEDS: Pantoprazole 40 MG VIAL IVP SCH (08:58)
[2020-06-05] MEDS: Ondansetron PF 4 MG/2 ML Vial IVP PRN ×2 (08:59→15:49)
[2020-06-05] MEDS ORDERED: Enoxaparin Sodium 40 MG/0.4 ML SYRINGE SC SCH (09:15)
[2020-06-05] MEDS: Nicotine 14 MG PATCH TD SCH (09:19)
[2020-06-05] MEDS: Lactated Ringer's 1,000 ML IV SCH ×2 (09:20→20:06)
[2020-06-05 11:27] LABS: INR-International Normal Ratio 1.1; PTT 28.2 sec (22.9-36.1); Prothrombin Time 14.2 sec (12.0-14.7)
[2020-06-05] MEDS: Multivitamins, Adult 10 ML, Folic Acid 1 MG in Dextrose 5 %-0.45 % NaCl 1,000 ML IV SCH (15:49)
[2020-06-05] MEDS ORDERED: Chloraseptic Spray 180 ml Bottle PO PRN (18:18)
[2020-06-05] MEDS ORDERED: Benzonatate 100 MG CAP PO PRN (18:18)
[2020-06-05] MEDS: Thiamine HCl 200 MG/2 ML VIAL SLOW IVP SCH (20:08)
[2020-06-05 23:14] LABS: Vancomycin, Trough 8.4 ug/mL
[2020-06-06] MEDS: Vancomycin 1.5 GRAM/300 ML BAG 1.5 GM in Premix Bag 1 BAG IVPB SCH ×2 (00:30→08:51)
[2020-06-06 03:31] LABS: #Eosinphils 0.2 thou/uL (0.0-0.7); #Lymphocytes 1.6 thou/uL (1.20-3.40); #Monocytes 0.6 thou/uL (0.11-0.59); #Neutrophils 6.8 thou/uL (1.40-6.50); %Basophils 0.4 % (0.0-1.0); %Eosinophils 1.9 % (0.0-10.0); %Lymphocytes 17.4 % (21.0-51.0); %Monocytes 6.6 % (0.0-10.0); %Neutrophils 73.8 % (42.0-75.0); Hemoglobin 14.3 g/dL (14.0-18.0); Mean Corpuscular HGB CONC 33.3 g/dL (32.0-36.0); Mean Corpuscular Hemoglobin 32.8 pg (27.0-31.0); Mean Corpuscular Volume 98.4 fL (78.0-98.0); Mean Platelet Volume 7.4 fL (7.4-10.4); Platelet Count 144 thou/uL (130-400); RBC Distribution Width 11.8 % (11.5-14.5); Red Blood Cell (RBC) Count 4.36 mill/uL (4.70-6.10); White Blood Cell (WBC) Count 9.2 thou/uL (4.8-10.8)
[2020-06-06 03:35] LABS: Prothrombin Time 13.5 sec (12.0-14.7)
[2020-06-06 03:51] LABS: ALT (SGPT) 44 U/L (8-55); AST (SGOT) 45 U/L (5-34); Albumin 3.7 g/dL (3.5-5.0); Alkaline Phosphatase 103 U/L (40-110); Anion Gap 17 mmol/L (10-20); BUN (Urea Nitrogen) 7 mg/dL (8.9-20.6); Bilirubin, Total 1.3 mg/dL (0.2-1.2); Calc. Creatinine Clearance 189 mL/min (70-130); Carbon Dioxide 19 mmol/L (22-29); Chloride 101 mmol/L (98-107); Globulin 3.2 g/dL (2.4-3.5); Glucose 100 mg/dL (70-105); Protein, Total 6.9 g/dL (6.0-8.3); Sodium 134 mmol/L (136-145)
[2020-06-06 03:56] LABS: Potassium 2.9 mmol/L (3.5-5.1)
[2020-06-06] MEDS ORDERED: Electrolyte Replacement Protocol 1 EACH FS SCH (04:15)
[2020-06-06] MEDS: Potassium Chloride 20 MEQ TAB PO SCH ×2 (04:50→08:50)
[2020-06-06] MEDS: Lorazepam 2 MG/ML VIAL SLOW IVP PRN ×6 (04:50→23:57)
[2020-06-06] MEDS: Ondansetron PF 4 MG/2 ML Vial IVP PRN (04:54)
[2020-06-06] MEDS: Cefepime 1 GM in Sodium Chloride 0.9% 100 ML IVPB SCH (08:51)
[2020-06-06] MEDS: Enoxaparin Sodium 40 MG/0.4 ML SYRINGE SC SCH (08:51)
[2020-06-06] MEDS: Pantoprazole 40 MG VIAL IVP SCH (08:51)
[2020-06-06] MEDS: Lactated Ringer's 1,000 ML IV SCH (10:30)
[2020-06-06] MEDS: Nicotine 14 MG PATCH TD SCH (11:33)
[2020-06-06] MEDS: Acetaminophen/Codeine 30-300mg Tablet PO PRN ×2 (13:06→21:18)
[2020-06-06] MEDS: Benzonatate 100 MG CAP PO SCH ×4 (13:06→23:57)
[2020-06-06 14:38] LABS: Potassium 4.1 mmol/L (3.5-5.1)
[2020-06-06 15:05] LABS: Vitamin D, 25 Hydroxy 11.9 ng/ml (> 30.0)
[2020-06-06 15:10] LABS: Thyroid Stimulating Hormone 0.681 uIU/mL (0.35-4.94)
[2020-06-06] MEDS: Multivitamins, Adult 10 ML, Folic Acid 1 MG in Dextrose 5 %-0.45 % NaCl 1,000 ML IV SCH (17:58)
[2020-06-06] MEDS: Thiamine HCl 200 MG/2 ML VIAL SLOW IVP SCH (20:02)
[2020-06-06] MEDS: Labetalol HCl 100 MG/20 ML VIAL SLOW IVP PRN (22:27)
[2020-06-07] MEDS: Ondansetron PF 4 MG/2 ML Vial IVP PRN ×2 (00:20→19:38)
[2020-06-07] MEDS: Lactated Ringer's 1,000 ML IV SCH (02:50)
[2020-06-07] MEDS: Acetaminophen/Codeine 30-300mg Tablet PO PRN ×2 (02:57→21:33)
[2020-06-07] MEDS: Benzonatate 100 MG CAP PO SCH ×6 (04:06→23:34)
[2020-06-07] MEDS: Lorazepam 2 MG/ML VIAL SLOW IVP PRN ×5 (04:06→23:34)
[2020-06-07 05:12] LABS: #Basophils 0.1 thou/uL (0.0-0.2); #Eosinphils 0.2 thou/uL (0.0-0.7); #Lymphocytes 2.3 thou/uL (1.20-3.40); #Monocytes 0.8 thou/uL (0.11-0.59); #Neutrophils 5.7 thou/uL (1.40-6.50); %Basophils 1.2 % (0.0-1.0); %Eosinophils 2.4 % (0.0-10.0); %Lymphocytes 25.3 % (21.0-51.0); %Monocytes 8.3 % (0.0-10.0); %Neutrophils 62.9 % (42.0-75.0); Hemoglobin 14.7 g/dL (14.0-18.0); Mean Corpuscular HGB CONC 33.7 g/dL (32.0-36.0); Mean Corpuscular Hemoglobin 33.1 pg (27.0-31.0); Mean Corpuscular Volume 98.4 fL (78.0-98.0); Mean Platelet Volume 7.7 fL (7.4-10.4); Platelet Count 167 thou/uL (130-400); RBC Distribution Width 11.9 % (11.5-14.5); Red Blood Cell (RBC) Count 4.44 mill/uL (4.70-6.10); White Blood Cell (WBC) Count 9.1 thou/uL (4.8-10.8)
[2020-06-07 05:37] LABS: ALT (SGPT) 93 U/L (8-55); AST (SGOT) 81 U/L (5-34); Albumin 4.2 g/dL (3.5-5.0); Alkaline Phosphatase 110 U/L (40-110); Anion Gap 15 mmol/L (10-20); BUN (Urea Nitrogen) 12 mg/dL (8.9-20.6); Bilirubin, Total 0.7 mg/dL (0.2-1.2); Calc. Creatinine Clearance 148 mL/min (70-130); Calcium 9.6 mg/dL (7.8-10.44); Carbon Dioxide 20 mmol/L (22-29); Chloride 101 mmol/L (98-107); Globulin 3.4 g/dL (2.4-3.5); Glucose 130 mg/dL (70-105); Potassium 3.4 mmol/L (3.5-5.1); Protein, Total 7.6 g/dL (6.0-8.3); Sodium 133 mmol/L (136-145)
[2020-06-07] MEDS ORDERED: Potassium Chloride 20 MEQ TAB PO SCH (06:30)
[2020-06-07] MEDS: Cholecalciferol 1,000 UNITS (25 MCG) TAB PO SCH (08:27)
[2020-06-07] MEDS: Pantoprazole 40 MG VIAL IVP SCH (08:28)
[2020-06-07] MEDS: Enoxaparin Sodium 40 MG/0.4 ML SYRINGE SC SCH (08:28)
[2020-06-07] MEDS: Nicotine 14 MG PATCH TD SCH (08:28)
[2020-06-07] MEDS: Metoprolol Tartrate 25 MG TAB PO SCH ×2 (15:22→19:36)
[2020-06-07] MEDS: Multivitamins, Adult 10 ML, Folic Acid 1 MG in Dextrose 5 %-0.45 % NaCl 1,000 ML IV SCH (15:47)
[2020-06-08] MEDS: Benzonatate 100 MG CAP PO SCH ×6 (03:23→23:42)
[2020-06-08] MEDS: Lorazepam 2 MG/ML VIAL SLOW IVP PRN ×6 (03:24→23:42)
[2020-06-08] MEDS: Acetaminophen/Codeine 30-300mg Tablet PO PRN ×2 (03:32→20:17)
[2020-06-08 09:05] LABS: Anion Gap 11 mmol/L (10-20); BUN (Urea Nitrogen) 6 mg/dL (8.9-20.6); Calc. Creatinine Clearance 173 mL/min (70-130); Calcium 9.2 mg/dL (7.8-10.44); Carbon Dioxide 23 mmol/L (22-29); Chloride 107 mmol/L (98-107); Glucose 105 mg/dL (70-105); Magnesium 1.9 mg/dL (1.6-2.6); Potassium 3.4 mmol/L (3.5-5.1); Sodium 138 mmol/L (136-145)
[2020-06-08] MEDS: Enoxaparin Sodium 40 MG/0.4 ML SYRINGE SC SCH (09:24)
[2020-06-08] MEDS: Ondansetron PF 4 MG/2 ML Vial IVP PRN (09:24)
[2020-06-08] MEDS: Metoprolol Tartrate 25 MG TAB PO SCH ×3 (09:24→20:16)
[2020-06-08] MEDS: Cholecalciferol 1,000 UNITS (25 MCG) TAB PO SCH (09:25)
[2020-06-08] MEDS ORDERED: Magnesium 2 GM/50 ML 2 GM in Premix Bag 1 BAG IVPB SCH (09:45)
[2020-06-08] MEDS ORDERED: Potassium Chloride 20 MEQ TAB PO SCH (09:45)
[2020-06-08] MEDS: Nicotine 14 MG PATCH TD SCH (10:16)
[2020-06-08] MEDS: Multivitamins, Adult 10 ML, Folic Acid 1 MG in Dextrose 5 %-0.45 % NaCl 1,000 ML IV SCH (16:44)
[2020-06-09 00:14] VITALS: TEMP 97.9
[2020-06-09] MEDS: Acetaminophen/Codeine 30-300mg Tablet PO PRN (03:42)
[2020-06-09] MEDS: Benzonatate 100 MG CAP PO SCH ×2 (03:43→11:07)
[2020-06-09] MEDS: Lorazepam 2 MG/ML VIAL SLOW IVP PRN (03:43)
[2020-06-09 07:48] VITALS: BP 144/82
[2020-06-09] MEDS: Cholecalciferol 1,000 UNITS (25 MCG) TAB PO SCH (09:43)
[2020-06-09] MEDS: Enoxaparin Sodium 40 MG/0.4 ML SYRINGE SC SCH (09:44)
[2020-06-09] MEDS: Metoprolol Tartrate 25 MG TAB PO SCH (09:44)
[2020-06-09] MEDS: Nicotine 14 MG PATCH TD SCH (10:25)
== END 2020-06-09 11:30 | disposition home or self-care (01) | DRG 897 ==
LOC: ERS 13:14 → IMCU/EMU 19:05 → 2NO 06-06 20:57
PROVIDERS: ADMIT Internal Medicine; ATTEND Internal Medicine
DX: F10.239 Alcohol dependence with withdrawal, unspecified (principal); E87.1 Hypo-osmolality and hyponatremia; E55.9 Vitamin D deficiency, unspecified; F17.200 Nicotine dependence, unspecified, uncomplicated; E87.6 Hypokalemia; E80.6 Other disorders of bilirubin metabolism; Z20.822 Contact with and (suspected) exposure to COVID-19; J45.909 Unspecified asthma, uncomplicated; I10 Essential (primary) hypertension; F32.9 Major depressive disorder, single episode, unspecified; Z88.8 Allergy status to other drugs, medicaments and biological substances; Z79.899 Other long term (current) drug therapy
CPT/HCPCS: 0240U; 36415; 36600; 71045; 80048; 80053; 80202; 80307; 81003; 81015; 82306; 82607; 82746; 82805; 83605; 83690; 83735; 84100; 84443; 85025; 85610; 85730; 86850; 86900; 86901; 87040; 87086; 93005; 96365; 96366; 96375; 96376; C9113; J0692; J1650; J2060; J2405; J3370; J3411; J3475; J3490; J7042

== ENCOUNTER 2021-02-07 12:30 | Inpatient (IN) | payer BC, SELFPAY ==
[2021-02-07] MEDS ORDERED: Lorazepam 2 MG/ML VIAL ONE ×2 (12:58→13:54)
[2021-02-07 13:20] LABS: #Basophils 0.1 thou/uL (0.0-0.2); #Lymphocytes 2.5 thou/uL (1.20-3.40); #Monocytes 0.4 thou/uL (0.11-0.59); #Neutrophils 4.5 thou/uL (1.40-6.50); %Basophils 1.2 % (0.0-1.0); %Eosinophils 0.5 % (0.0-10.0); %Lymphocytes 33.2 % (21.0-51.0); %Monocytes 5.2 % (0.0-10.0); %Neutrophils 59.8 % (42.0-75.0); Hemoglobin 16.7 g/dL (14.0-18.0); Mean Corpuscular HGB CONC 35.5 g/dL (32.0-36.0); Mean Corpuscular Hemoglobin 32.7 pg (27.0-31.0); Mean Corpuscular Volume 92.1 fL (78.0-98.0); Mean Platelet Volume 7.2 fL (7.4-10.4); Platelet Count 236 thou/uL (130-400); RBC Distribution Width 11.9 % (11.5-14.5); White Blood Cell (WBC) Count 7.5 thou/uL (4.8-10.8)
[2021-02-07 13:25] LABS: Acetaminophen Less than 6.0 mcg/mL (10.0-30.0); Alcohol 180 mg/dL (Less than 10); Salicylate Less than 8.0 mg/dL (15.0-30.0)
[2021-02-07 13:26] LABS: ALT (SGPT) 84 U/L (8-55); AST (SGOT) 63 U/L (5-34); Albumin 3.9 g/dL (3.5-5.0); Alcohol 177 mg/dL (Less than 10); Alkaline Phosphatase 106 U/L (40-110); Anion Gap 17 mmol/L (10-20); BUN (Urea Nitrogen) 8 mg/dL (8.9-20.6); Bilirubin, Total 1.4 mg/dL (0.2-1.2); Calc. Creatinine Clearance 0 mL/min (70-130); Calcium 8.8 mg/dL (7.8-10.44); Carbon Dioxide 19 mmol/L (22-29); Chloride 106 mmol/L (98-107); Globulin 3.2 g/dL (2.4-3.5); Glucose 149 mg/dL (70-105); Lipase 36 U/L (8-78); Potassium 3.9 mmol/L (3.5-5.1); Protein, Total 7.1 g/dL (6.0-8.3); Sodium 138 mmol/L (136-145)
[2021-02-07] MEDS ORDERED: Cefepime 2 GM VIAL ONE (13:55)
[2021-02-07] MEDS ORDERED: Vancomycin 1 GM/200 ML BAG ONE (13:55)
[2021-02-07 14:17] LABS: Magnesium 1.7 mg/dL (1.6-2.6)
[2021-02-07 14:21] LABS: INR-International Normal Ratio 1.5; Prothrombin Time 18.2 sec (12.0-14.7)
[2021-02-07] MEDS ORDERED: Thiamine HCl 200 MG/2 ML VIAL SLOW IVP SCH (14:45)
[2021-02-07] MEDS ORDERED: Folic Acid 1 MG, Multivitamins, Adult 10 ML in Dextrose 5 %-0.45 % NaCl 1,000 ML IV SCH (14:45)
[2021-02-07 14:47] LABS: Bilirubin Negative (Negative); Blood, Urine Negative (Negative); Clarity Clear (Clear); Glucose, Urine (Dipstick) Normal (Negative); Ketone, Urine Negative (Negative); Leukocyte Negative Leu/uL (Negative); Nitrite Negative (Negative); Protein, Urine (Dipstick) Negative (Neg-Trace); Urobilinogen Normal mg/dL (Less than 2)
[2021-02-07] MEDS ORDERED: Electrolyte Replacement Protocol 1 EACH FS SCH (15:15)
[2021-02-07] MEDS ORDERED: chlordiazePOXIDE HCl 25 MG CAP PO SCH (15:30)
[2021-02-07 15:34] LABS: SARS-CoV-2 NAA Rapid Test Not Detected (NotDetected)
[2021-02-07] MEDS ORDERED: Lorazepam 2 MG/ML VIAL SLOW IVP PRN (15:57)
[2021-02-07] MEDS ORDERED: Ondansetron ODT 4 MG TAB PO PRN (16:00)
[2021-02-07] MEDS ORDERED: Ondansetron PF 4 MG/2 ML Vial IVP PRN (16:00)
[2021-02-07] MEDS ORDERED: Magnesium 2 GM/50 ML 2 GM in Premix Bag 1 BAG IVPB SCH (16:00)
[2021-02-07 16:07] LABS: Lactic Acid 2.2 mmol/L (0.5-2.2)
[2021-02-07] MEDS ORDERED: Aluminum & Magnesium Hydroxide 60 ML, Lidocaine 2% Viscous Solution 30 ML, diphenhydrAM... SSW PRN (17:00)
[2021-02-07 17:12] LABS: Phosphorus 1.9 mg/dL (2.3-4.7)
[2021-02-07] MEDS: Lactated Ringer's 1,000 ML IV SCH (17:18)
[2021-02-07 17:22] LABS: HIV (1/2) Antibody/Antigen Non-Reactive (NonReactive)
[2021-02-07] MEDS: Nicotine 14 MG PATCH TD SCH (17:58)
[2021-02-07 19:17] LABS: Amphetamine Not Detected (NotDetected); Barbiturates Screen Not Detected (NotDetected); Benzodiazepine Screen Not Detected (NotDetected); Cocaine Metabolite Screen Not Detected (NotDetected); Methadone Not Detected (NotDetected); Methamphetamine Not Detected (NotDetected); Opiate Screen Not Detected (NotDetected); Oxycodone Screen Not Detected (NotDetected); Phencyclidine (PCP) Not Detected (NotDetected); THC/Cannabinoid Screen Not Detected (NotDetected); Tricyclic Screen Detected (NotDetected)
[2021-02-07] MEDS: Lorazepam 2 MG/ML VIAL SLOW IVP PRN ×2 (19:52→23:37)
[2021-02-07] MEDS ORDERED: Potassium Phosphate 15 MMOL in Sodium Chloride 0.9% 100 ML IVPB SCH (22:30)
[2021-02-07] MEDS: chlordiazePOXIDE HCl 25 MG CAP PO SCH (22:41)
[2021-02-08 04:02] LABS: #Basophils 0.1 thou/uL (0.0-0.2); #Eosinphils 0.2 thou/uL (0.0-0.7); #Lymphocytes 3.3 thou/uL (1.20-3.40); #Monocytes 0.8 thou/uL (0.11-0.59); #Neutrophils 7.9 thou/uL (1.40-6.50); %Basophils 0.8 % (0.0-1.0); %Eosinophils 1.2 % (0.0-10.0); %Lymphocytes 26.6 % (21.0-51.0); %Monocytes 6.9 % (0.0-10.0); %Neutrophils 64.5 % (42.0-75.0); Hemoglobin 15.7 g/dL (14.0-18.0); Mean Corpuscular Hemoglobin 32.8 pg (27.0-31.0); Mean Corpuscular Volume 93.9 fL (78.0-98.0); Mean Platelet Volume 7.2 fL (7.4-10.4); Platelet Count 218 thou/uL (130-400); RBC Distribution Width 12.1 % (11.5-14.5); Red Blood Cell (RBC) Count 4.79 mill/uL (4.70-6.10); White Blood Cell (WBC) Count 12.3 thou/uL (4.8-10.8)
[2021-02-08 04:24] LABS: ALT (SGPT) 89 U/L (8-55); AST (SGOT) 106 U/L (5-34); Albumin 3.8 g/dL (3.5-5.0); Alkaline Phosphatase 103 U/L (40-110); Anion Gap 17 mmol/L (10-20); BUN (Urea Nitrogen) 8 mg/dL (8.9-20.6); Bilirubin, Total 1.4 mg/dL (0.2-1.2); Calc. Creatinine Clearance 153 mL/min (70-130); Calcium 8.6 mg/dL (7.8-10.44); Carbon Dioxide 19 mmol/L (22-29); Chloride 106 mmol/L (98-107); Globulin 3.2 g/dL (2.4-3.5); Glucose 94 mg/dL (70-105); Magnesium 1.9 mg/dL (1.6-2.6); Phosphorus 4.4 mg/dL (2.3-4.7); Potassium 3.9 mmol/L (3.5-5.1); Sodium 138 mmol/L (136-145)
[2021-02-08] MEDS ORDERED: Magnesium 2 GM/50 ML 2 GM in Premix Bag 1 BAG IVPB SCH (04:45)
[2021-02-08] MEDS: chlordiazePOXIDE HCl 25 MG CAP PO SCH ×3 (06:17→20:37)
[2021-02-08] MEDS: Lactated Ringer's 1,000 ML IV SCH ×3 (08:50→20:39)
[2021-02-08] MEDS: Escitalopram Oxalate 10 mg Tablet PO SCH (09:24)
[2021-02-08] MEDS: Folic Acid 1 MG TAB PO SCH (09:25)
[2021-02-08] MEDS: Pantoprazole 40 MG GRANULES PACKET PO SCH (09:25)
[2021-02-08] MEDS: Cholecalciferol 1,000 UNITS (25 MCG) TAB PO SCH (09:25)
[2021-02-08] MEDS: Thiamine 100 MG TAB PO SCH (09:25)
[2021-02-08] MEDS: busPIRone HCl 5 MG TAB PO SCH (09:25)
[2021-02-08] MEDS: Multivit, Therapeutic 1 TAB PO SCH (09:25)
[2021-02-08 10:03] VITALS: BMI 34.1
[2021-02-08] MEDS: Lorazepam 2 MG/ML VIAL SLOW IVP PRN ×2 (11:16→17:56)
[2021-02-08 11:53] LABS: Syphilis Antibody Nonreactive (Nonreactive); Syphilis Antibody Index 0.05 S/CO (<1.00 Non-Reactive)
[2021-02-08] MEDS: Nicotine 14 MG PATCH TD SCH (15:25)
[2021-02-09] MEDS ORDERED: traZODone HCl 50 MG TAB PO SCH ×2 (01:00→21:00)
[2021-02-09] MEDS: chlordiazePOXIDE HCl 25 MG CAP PO SCH ×2 (01:42→08:53)
[2021-02-09 04:33] LABS: ALT (SGPT) 73 U/L (8-55); AST (SGOT) 76 U/L (5-34); Albumin 3.8 g/dL (3.5-5.0); Alkaline Phosphatase 153 U/L (40-110); Anion Gap 14 mmol/L (10-20); BUN (Urea Nitrogen) 9 mg/dL (8.9-20.6); Bilirubin, Total 1.6 mg/dL (0.2-1.2); Calc. Creatinine Clearance 150 mL/min (70-130); Carbon Dioxide 23 mmol/L (22-29); Chloride 102 mmol/L (98-107); Globulin 3.1 g/dL (2.4-3.5); Glucose 108 mg/dL (70-105); Potassium 3.6 mmol/L (3.5-5.1); Protein, Total 6.9 g/dL (6.0-8.3); Sodium 135 mmol/L (136-145)
[2021-02-09] MEDS: Thiamine 100 MG TAB PO SCH (08:52)
[2021-02-09] MEDS: Folic Acid 1 MG TAB PO SCH (08:52)
[2021-02-09] MEDS: busPIRone HCl 5 MG TAB PO SCH (08:52)
[2021-02-09] MEDS: Cholecalciferol 1,000 UNITS (25 MCG) TAB PO SCH (08:52)
[2021-02-09] MEDS: Multivit, Therapeutic 1 TAB PO SCH (08:52)
[2021-02-09] MEDS: Escitalopram Oxalate 10 mg Tablet PO SCH (08:52)
[2021-02-09] MEDS: Pantoprazole 40 MG GRANULES PACKET PO SCH (08:53)
[2021-02-09] MEDS ORDERED: chlordiazePOXIDE HCl 25 MG CAP PO SCH (09:01)
[2021-02-09 09:40] LABS: #Eosinphils 0.3 thou/uL (0.0-0.7); #Lymphocytes 2.8 thou/uL (1.20-3.40); #Monocytes 0.8 thou/uL (0.11-0.59); #Neutrophils 5.6 thou/uL (1.40-6.50); %Basophils 0.4 % (0.0-1.0); %Eosinophils 3.3 % (0.0-10.0); %Lymphocytes 29.3 % (21.0-51.0); %Monocytes 8.2 % (0.0-10.0); %Neutrophils 58.8 % (42.0-75.0); Hemoglobin 15.7 g/dL (14.0-18.0); Mean Corpuscular HGB CONC 35.3 g/dL (32.0-36.0); Mean Corpuscular Hemoglobin 33.1 pg (27.0-31.0); Mean Corpuscular Volume 93.8 fL (78.0-98.0); Mean Platelet Volume 7.4 fL (7.4-10.4); Platelet Count 184 thou/uL (130-400); RBC Distribution Width 12.1 % (11.5-14.5); Red Blood Cell (RBC) Count 4.75 mill/uL (4.70-6.10); White Blood Cell (WBC) Count 9.5 thou/uL (4.8-10.8)
[2021-02-09] MEDS: Nicotine 14 MG PATCH TD SCH (16:47)
[2021-02-09] MEDS ORDERED: Sodium Chloride 0.9% 10 ML ONE (18:27)
[2021-02-09] MEDS: Lorazepam 2 MG/ML VIAL SLOW IVP PRN (18:38)
[2021-02-09] MEDS ORDERED: Montelukast Sodium 10 mg Tablet PO SCH (21:00)
[2021-02-09 21:25] VITALS: BP 144/65; TEMP 98.9
[2021-02-10] MEDS ORDERED: Thiamine 100 MG TAB PO SCH (15:15)
== END 2021-02-09 22:30 | disposition left against medical advice (07) | DRG 894 ==
LOC: ERS 12:30 → IMCU/EMU 14:55 → 2NO 02-09 17:53
PROVIDERS: ADMIT Family Medicine; ATTEND Family Medicine
DX: F10.232 Alcohol dependence with withdrawal with perceptual disturbance (principal); F10.251 Alcohol dependence with alcohol-induced psychotic disorder with hallucinations; I10 Essential (primary) hypertension; J45.909 Unspecified asthma, uncomplicated; M81.0 Age-related osteoporosis without current pathological fracture; F41.9 Anxiety disorder, unspecified; F32.A Depression, unspecified; K12.1 Other forms of stomatitis; K21.9 Gastro-esophageal reflux disease without esophagitis; R00.0 Tachycardia, unspecified; Z20.822 Contact with and (suspected) exposure to COVID-19; Z88.5 Allergy status to narcotic agent; Z88.8 Allergy status to other drugs, medicaments and biological substances; Z79.899 Other long term (current) drug therapy
CPT/HCPCS: 36415; 71045; 80053; 80306; 80307; 81003; 82550; 83605; 83690; 83735; 84100; 84484; 85025; 85610; 85730; 86780; 87389; 93005; 96365; 96366; 96368; 96375; 96376; J0692; J2060; J3370; J3411; J3475; J3490; J7042; J7120; Q0162; U0002

== ENCOUNTER 2022-10-21 10:19 | Emergency (ER) | payer BC, SELFPAY | END 2022-10-21 11:26 | LOC: ERS 10:19 | DX: Z53.21 Procedure and treatment not carried out due to patient leaving prior to being seen by health care provider (principal) ==